=== PATIENT | female | born 1970 | race African-American/Black ===

== ENCOUNTER 2022-08-31 18:03 | Emergency (ER) | payer OTHER ==
[2022-08-31 19:40] VITALS: BP 160/90; PULSE 93; RESP 20; TEMP 98.1
--- NOTE | 2022-08-31 20:06 | XR ---
EXAMINATION TYPE: XR ankle complete RT DATE OF EXAM: 08/31/2022 COMPARISON: NONE HISTORY: Ankle pain TECHNIQUE: 3 views FINDINGS: Ankle mortise is anatomic. I see no fracture nor dislocation. Joint spaces are normal. IMPRESSION: Negative right ankle exam. No fracture.
--- NOTE | 2022-08-31 20:48 | ED ---
Lower Extremity Injury HPI - General Chief Complaint: Extremity Injury, Lower Stated Complaint: Ankle Injury Time Seen by Provider: 08/31/22 20:36 Source: patient, RN notes reviewed, old records reviewed Mode of arrival: ambulatory Limitations: no limitations - History of Present Illness Initial Comments: This is a pleasant 52-year-old female that presents to the emergency room with complaints of right ankle pain. 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 Did take Motrin prior to arrival. Worse with palpation or movement. Denies any other injury. No broken skin. Tetanus is up-to-date. Does have a history of diabetes and hypertension. MD Complaint: ankle injury (right) -: hour(s) (3) Place: work Severity scale (1-10): 8 Improves With: immobilization Worsens With: palpation Context: direct blow (car bumper fell on ankle) Treatments Prior to Arrival: NSAIDS - Related Data Allergies Allergy/AdvReac Type Severity Reaction Status Date / Time morphine Allergy Unknown Verified 08/31/22 19:42 Sulfa (Sulfonamide Allergy Unknown Verified 08/31/22 19:42 Antibiotics) Review of Systems ROS Statement: Those systems with pertinent positive or pertinent negative responses have been documented in the HPI. ROS Other: All systems not noted in ROS Statement are negative. Past Medical History Past Medical History: Diabetes Mellitus, Hypertension Additional Past Medical History / Comment(s): chronic bronchitis. heart palpitations. TIA 2019 History of Any Multi-Drug Resistant Organisms: None Reported Past Surgical History: Cholecystectomy Additional Past Surgical History / Comment(s): back surgery Past Psychological History: No Psychological Hx Reported Smoking Status: Never smoker Past Alcohol Use History: Occasional Past Drug Use History: None Reported General Exam Limitations: no limitations General appearance: alert, in no apparent distress Respiratory exam: Absent: respiratory distress, accessory muscle use Cardiovascular Exam: Present: regular rate Right Lower Leg exam: Present: full ROM. Absent: tenderness, swelling, laceration, ecchymosis, Homans' sign Ankle exam: Present: tenderness (Lateral malleolus), swelling (Minimal). Absent: abrasion, laceration, deformity, crepitus, dislocation, erythema Foot/Toe exam: Absent: tenderness, swelling, abrasion, laceration, ecchymosis, deformity, erythema, calcaneal tenderness, tenderness at base of 5th metatarsal Neurovascular tendon exam: Present: no vascular compromise. Absent: abnormal cap refill, motor deficit, sensory deficit, tendon deficit, extremity cold to touch, pallor, foot drop Neurological exam: Present: alert, oriented X3 Psychiatric exam: Present: normal affect, normal mood Skin exam: Present: warm, dry, normal color. Absent: cyanosis, diaphoretic, petechiae, pallor Course Vital Signs 08/31/22 19:37 Temperature 98.1 F Pulse Rate 93 Respiratory 20 Rate Blood Pressure 160/90 O2 Sat by Pulse 99 Oximetry Medical Decision Making - Medical Decision Making Patient presents with right ankle pain after a car bumper fell on her ankle at work today at 5:00. No broken skin. Good range of motion. Point tenderness right lateral malleolus. X-ray of the right ankle interpreted by me shows no evidence of fracture or dislocation. Radiologist interpretation is negative right ankle exam. Negative for fracture. Ankle mortise is anatomic, joint spaces are normal. Patient was offered Tylenol or Motrin and declined. She was offered a shot of Toradol again declined. She will be given an juan miguel wrap and ice pack. Directed to rest ice elevate Tylenol and Motrin as stated for pain or discomfort. Case discussed with Dr. Enriquez Disposition Clinical Impression: Ankle pain, right Disposition: HOME SELF-CARE Condition: Good Instructions (If sedation given, give patient instructions): Ankle Sprain (ED) Additional Instructions: Rest, ice, elevate and wear juan miguel wrap for compression. Tylenol and or Motrin as needed for pain. Follow-up with your primary care doctor next week as needed. Is patient prescribed a controlled substance at d/c from ED?: No Referrals: Stacie Bobo DO [Primary Care Provider] - 1-2 days
== END 2022-08-31 21:33 | disposition home or self-care (01) ==
LOC: EC 18:03
DX: M25.571 Pain in right ankle and joints of right foot (principal); E11.9 Type 2 diabetes mellitus without complications; I10 Essential (primary) hypertension; Z88.2 Allergy status to sulfonamides; Z88.6 Allergy status to analgesic agent
CPT/HCPCS: 99283